=== PATIENT | female | born 1950 | race Caucasian/White ===

== ENCOUNTER 2023-03-08 10:43 | Emergency (ER) | payer MEDICARE, BC, SELFPAY ==
[2023-03-08 10:45] VITALS: BP 135/65; PULSE 77; RESP 15; TEMP 36.9; O2SAT 97
--- NOTE | 2023-03-08 11:00 | DI.RAD_ITS ---
Exam(s) XR SHOULDER LT COMPLETE 2+V EXAM: XR SHOULDER LT COMPLETE 2+V CLINICAL HISTORY: left shoulder pain. TECHNIQUE: 2D digital imaging was performed. COMPARISON: No exams were available for comparison FINDINGS: Four views: No evidence of acute fracture or dislocation. No narrowing of the glenohumeral and AC joints. Main finding here is a chunk of calcium in the lateral subacromial space just above the greater tuber osity, this measuring approximately 8 x 4 mm. Subacromial space itself not diminished. No osseous l esions. IMPRESSION: Findings consistent with calcific rotator cuff tendinitis. DATA REPOSITORY: RADIATION DOSE DELIVERED:
[2023-03-08] MEDS: Ketorolac 15 MG/ML VIAL IM (11:20)
--- NOTE | 2023-03-08 11:43 | ED.GENADUL_ITS ---
Discharge Plan Disposition Patient Disposition: Home Condition: Good Discharge Details Clinical Impression: Calcific tendinitis of left shoulder Primary Care Provider: None,None ED Provider: Tracey Voss Home Meds and New Rx's Prescriptions: No Action atorvastatin 20 mg Tablet 20 mg PO QHS pantoprazole 40 mg Tablet,Delayed Release (Dr/Ec) 40 mg PO DAILY Discharge Instructions Instructions: Tendinitis (ED) Referrals: [facility] [Provider Group] - 1 week (tendinitis) Tracey Voss MD [Emergency Provider] - Medical Decision Making 72yo female overall healthy presenting for acute on chronic left shoulder pain. Vital signs reassuring on arrival. Nothing on history or exam to suggest septic joint. Pain is reproducible in anterior shoulder; not concerned for cardiac etiology. Pain worse in the morning, this exacerbation onset after clearing brush, symptoms improved with ibuprofen. Given IM toradol. XR ordered and independently reviewed; agree with radiology read, no fracture or dislocation, likely rotator cuff tendinitis. On reassessment she reports pain has improved. Referred to [facility] orthopedic group and advised to followup with them here, and then her PCP when she returns to [place]. Discharged home; discharge instructions including return precautions were reviewed with patient who verablized understanding. Alll questions were answered and they are in full agreement with the plan. Imaging Data Radiologic Study: Radiologist's impression: IMPRESSION: Findings consistent with calcific rotator cuff tendinitis. HPI General Mode of arrival: ambulatory . Date/Time Provider Initiated Documentation: 03/08/23 10:57 . Limitations to Documentation: no limitations . Information obtained by: patient . HPI Narrative: 72yo F with HLD, otherwise healthy, presenting for left shoulder pain. Pain has been present, waxing and waning in severity, x 1 year. Started after COVID shot in that arm. Has seen her PCP [place] with reassuring XR, plan to watch and wait, maybe further imaging in the fall when she returns home. Was clearing brush two days ago, that night pain was worse. Was worse further upon waking yesterday, improved somewhat throughout the day, then severe this morning upon waking. Does not recall any recent trauma to the area. Pain is worse with internal rotation. No pain at wrist or elbow. She is otherwise in her usual state of health with no fevers, chills, rash, nausea, vomiting, shortness of breath, chest pain, or other concerns. Related Data Home Medications Medication Instructions Recorded Confirmed atorvastatin 20 mg tablet 20 mg PO QHS 03/08/23 03/08/23 pantoprazole 40 mg tablet,delayed 40 mg PO DAILY 03/08/23 03/08/23 release Allergies Allergy/AdvReac Type Severity Reaction Status Date / Time clindamycin Allergy Mild Skin Rash Unverified 03/08/23 10:50 General Stated Complaint: Orthopedic ASHLEY: 4 Review of Systems Narrative: see HPI PFSH All Active Problems (Updated 03/08/23 @ 12:21 by Tracey Voss MD) Calcific tendinitis of left shoulder (Acute) Social History Smoking/Tobacco Use Status: Never Smoking risk assessment performed?: Yes Alcohol Intake: current Alcohol Intake frequency: a few times a week Alcohol type: beer Drug use: Never Substance use type: does not use Housing: house Exam Narrative Exam Narrative: General: Alert, well appearing, well nourished, in no acute distress. Head: Normocephalic, atraumatic Neck: Trachea midline, Neck supple. Cardiac: No cyanosis Resp: No respiratory distress. Speaks in full sentences. Extremities: No deformities. LUE: No bony tenderness to digits, wrist, elbow, clavicle, or scapula. Anterior shoulder moderately TTP. No shoulder warmth/erthyema/effusion. Moderate pain with passive ROM with internal rotation, signficant pain with active ROM with adduction and internal/external rotation. Neurologic: GCS 15. Moves all extremities freely against gravity Course Vital Signs Vital signs: Vital Signs Temperature 36.9 C 03/08/23 10:45 Pulse 77 03/08/23 10:45 Respiratory Rate 15 03/08/23 10:45 Blood Pressure 135/65 03/08/23 10:45 Pulse Oximetry 97 03/08/23 10:45 Temperature 36.9 C 03/08/23 10:45 Temperature Source Temporal Artery Scan 03/08/23 10:45 Pulse 77 03/08/23 10:45 Respiratory Rate 15 03/08/23 10:45 Respiratory Effort Normal 03/08/23 10:48 Blood Pressure 135/65 03/08/23 10:45 Blood Pressure Position Sitting 03/08/23 10:45 Pulse Oximetry 97 03/08/23 10:45 Oxygen Delivery Method Room Air 03/08/23 10:45 Oxygen Flow Rate 0 03/08/23 10:45 Pain Level 5 03/08/23 11:20 PAWSS Have you Been Recently Intoxicated or Drunk Within the Last 30 days?: No Have you Ever Experienced Previous Episodes of Alcohol Withdrawal?: No Have you ever Experienced Withdrawal Seizures?: No Have you ever Experienced Delirium Tremens(DT)s?: No Have you ever undergone Alcohol Rehabilitation Treatment (i.e, inpt ot outpatient treatment programs)?: No Have you ever Experienced Blackouts?: No Have you ever Combined Alcohol with other Downers within the last 90 days?: No Have you ever Combined Alcohol with any other Substance of Abuse during the last 90 days?: No Result: 0
[2023-03-08 12:47] VITALS: BP 101/70; PULSE 66; O2SAT 95
== END 2023-03-08 12:50 | disposition home or self-care (01) ==
PROVIDERS: Emergency Provider Student in an Organized Health Care Education/Training Program
DX: M75.32 Calcific tendinitis of left shoulder (principal)
CPT/HCPCS: 96372; 99284; 73030; 99282; J1885

== ENCOUNTER → 2023-03-21 10:17 | Outpatient (BNVA) | payer MEDICARE, BC, SELFPAY | PROVIDERS: Visit Provider Student in an Organized Health Care Education/Training Program | DX: S49.82XA Other specified injuries of left shoulder and upper arm, initial encounter (principal); T50.Z95A Adverse effect of other vaccines and biological substances, initial encounter; M75.32 Calcific tendinitis of left shoulder | CPT/HCPCS: 99203; 99213 ==

== ENCOUNTER 2023-04-21 11:01 | Emergency (ER) | payer MEDICARE, BC, SELFPAY ==
[2023-04-21 11:06] VITALS: BP 137/66; PULSE 72; RESP 17; TEMP 36.4; O2SAT 96
--- NOTE | 2023-04-21 11:31 | W.ED.GENAD ---
Discharge Plan Disposition Patient Disposition: Home Discharge Details Clinical Impression: Acute chest wall pain Primary Care Provider: JenaeLocal ED Provider: Jimmy Aguillon Home Meds and New Rx's Prescriptions: No Action atorvastatin 20 mg Tablet 20 mg PO QHS pantoprazole 40 mg Tablet,Delayed Release (Dr/Ec) 40 mg PO DAILY Discharge Instructions Instructions: Chest Wall Pain (ED) Additional Instructions: You may continue to use appropriate [id number] medication as needed for further discomfort. If the lidocaine patch helps reduce some of your symptoms you may purchase [id number] lidocaine cream or patch 4% strength and apply as directed on packaging. If you have any new or significant worsening of symptoms return the emergency department for reassessment otherwise follow-up with your primary care provider as needed Referrals: Primary Care Provider [Outside] Discharge Data Discharge Date/Time-TO BE ENTERED AT DEPARTURE: 04/21/23 15:45 Medical Decision Making Patient presenting to the emergency department for chief complaint of left chest wall pain. Patient was picked up a [employer] 5 days ago and felt a pulling and pop in her left chest wall. Patient denies any blunt trauma, abdominal pain, cardiac complaints. Does state pain with inspiration and movement otherwise denies all other symptoms. Physical exam shows tenderness to the anterior axillary portion of the left lower ribs. No tenderness with anterior posterior compression, clear lung sounds, no abdominal tenderness exam otherwise unremarkable. Suspect chest wall strain versus abdominal wall muscular injury, do not feel that we need to perform any advanced imaging or labs. We will treat patient symptomatically and have her monitor symptoms and return for new or worsening. After discussion of diagnosis and plan of care patient has no further needs, questions, or concerns and states clear understanding to return to the emergency department for any worsening symptoms. This documentation was generated using [employer] system, please disregard any oddities of phrase or misspellings. HPI General Mode of arrival: ambulatory. Date/Time Provider Initiated Documentation: 04/21/23 11:05. Limitations to Documentation: no limitations. Information obtained by: patient, family and RN notes reviewed. History of Present Illness 72 year old F presents to the emergency department with the chief complaint of Left chest wall pain, described as moderate, Quality is described as aching and sharp, and is localized to the chest. Patient started experiencing this day(s) (5) and it has been constant. No relieving factors improve symptom(s), No exacerbating factors reported . Patient notes no other symptoms.. Patient did receive the following treatments prior to arrival, NSAID Related Data Home Medications Medication Instructions Recorded Confirmed atorvastatin 20 mg tablet 20 mg PO QHS 03/08/23 04/21/23 pantoprazole 40 mg tablet,delayed 40 mg PO DAILY 03/08/23 04/21/23 release Allergies Allergy/AdvReac Type Severity Reaction Status Date / Time clindamycin Allergy Mild Skin Rash Unverified 03/21/23 10:24 General Stated Complaint: Orthopedic ASHLEY: 5 Review of Systems Constitutional Constitutional: Denies chills, Denies fever(s) and Denies malaise Cardiovascular Cardiovascular: Reports chest pain, Denies syncope, Denies lightheadedness and Denies dyspnea Respiratory Respiratory: Reports pain on inspiration and Denies dyspnea Gastrointestinal Gastrointestinal: Denies abdominal pain Musculoskeletal Musculoskeletal: Denies back pain Integumentary/Breasts Skin/Breast: Denies rash, Denies unusual bruising and Denies wounds Neurologic Neurologic: Denies syncope PFSH All Active Problems (Updated 04/21/23 @ 11:37 by Jimmy Aguillon NP) Acute chest wall pain (Acute) Shoulder injury related to vaccine administration (SIRVA) (Acute) Social History Smoking/Tobacco Use Status: Never Smoking risk assessment performed?: Yes Alcohol Intake: current Alcohol Intake frequency: a few times a week Alcohol type: beer Drug use: Never Substance use type: does not use Housing: house Current gender identity: female Do you feel safe at home: Yes Do you feel safe in your relationship?: Yes Exam Const General: cooperative, no acute distress and not ill appearing Orientation: alert, awake and oriented x3 HENMT Mouth: moist mucous membranes Chest Chest: normal inspection of the chest, no localized rib tenderness and tenderness rib left anterior-axillary line involving the 9th rib and involving the 10th rib Resp Effort & Inspection: normal respiratory effort, able to speak in complete sentences and no respiratory distress Auscultation: clear to auscultation bilaterally Cardio Rate: regular rate Rhythm: regular rhythm Heart Sounds: S1 normal and S2 normal Skin General skin exam: no rashes or lesions noted Neuro General: patient alert, patient awake, patient oriented x3, moves all extremities and no focal motor deficits Sensory Exam: no sensory deficits noted Course Vital Signs Vital signs: Vital Signs Temperature 36.4 C L 04/21/23 11:06 Pulse 72 04/21/23 11:06 Respiratory Rate 17 04/21/23 11:06 Blood Pressure 137/66 04/21/23 11:06 Pulse Oximetry 96 04/21/23 11:06 Temperature 36.4 C L 04/21/23 11:06 Temperature Source Temporal Artery Scan 04/21/23 11:06 Pulse 72 04/21/23 11:06 Respiratory Rate 17 04/21/23 11:06 Respiratory Effort Normal, Non-Labored 04/21/23 11:09 Blood Pressure 137/66 04/21/23 11:06 Blood Pressure Position Sitting 04/21/23 11:06 Pulse Oximetry 96 04/21/23 11:06 Oxygen Delivery Method Room Air 04/21/23 11:06 Oxygen Flow Rate 0 04/21/23 11:06 Pain Level 6 04/21/23 11:06
[2023-04-21] MEDS: Lidocaine 5% Patch 1 PATCH TP (11:53)
== END 2023-04-21 15:45 | disposition home or self-care (01) ==
PROVIDERS: Emergency Provider Nurse Practitioner Family
DX: R07.9 Chest pain, unspecified (principal)
CPT/HCPCS: 99283

== ENCOUNTER 2023-05-01 10:46 | Emergency (ER) | payer MEDICARE, BC, SELFPAY ==
[2023-05-01 10:45] VITALS: BP 133/69; PULSE 67; TEMP 36.6; O2SAT 98
--- NOTE | 2023-05-01 10:53 | ED.GENADUL_ITS ---
Discharge Plan Disposition Patient Disposition: Home Condition: Stable Discharge Details Clinical Impression: Closed fracture of right tibial plateau, Tibial plateau fracture, right Primary Care Provider: Jenae,Local ED Provider: Sridhar Davis Meds and New Rx's Prescriptions: New naproxen sodium 275 mg tablet 275 mg PO BID Qty: 60 0RF Continued atorvastatin 20 mg Tablet 20 mg PO QHS pantoprazole 40 mg Tablet,Delayed Release (Dr/Ec) 40 mg PO DAILY Discharge Instructions Instructions: Leg Fracture (ED) Discharge Data Discharge Physician: Sridhar Davis Medical Decision Making MDM: Summary: Patient with trauma to her right knee that happened yesterday and pain who had x-rays done and shows a right nondisplaced lateral tibial plateau fracture. She will be placed on knee immobilizer and crutches and will be nonweightbearing she will follow with orthopedic surgery this week Data Review Analysis All the data on this patient was reviewed by me including laboratory and imaging studies as well as bedside studies performed by me Independent review of Studies Imaging X-ray of the right knee shows a nondisplaced right lateral tibial plateau fracture Lab: Risk Stratification: Patient with a nondisplaced right tibial patella fracture and will be placed in knee immobilizer and crutches and will follow with orthopedic surgery at this Differential Diagnosis: 1. Tibial plateau fracture 2. Knee sprain 3. Femur fracture 4. 5. Consultants: Dr. Jesús Virk was consulted agrees with disposition and plan and will see the patient this week Shared disposition: Patient and family understand the plan and she will be discharged home on crutches and knee immobilizer Impression: Medical Records Medical records reviewed: Yes I reviewed the patient's medical records. Imaging Data Radiologic Study: Attestation: I personally reviewed and interpreted this imaging study as follows: Imaging: X-Ray My impression: X-ray right knee shows a lateral nondisplaced tibial plateau fracture Radiologist's impression: Same interpretation of the radiologist HPI General Date/Time Provider Initiated Documentation: 05/01/23 10:52 . HPI Narrative: Patient presents to the emergency department complaining of right knee pain after she fell going into her house landing on her right knee. Reporting tenderness to the lateral aspect of the right knee which she reports about an 8/10 in hurts to bear weight Related Data Home Medications Medication Instructions Recorded Confirmed atorvastatin 20 mg tablet 20 mg PO QHS 03/08/23 05/01/23 pantoprazole 40 mg tablet,delayed 40 mg PO DAILY 03/08/23 05/01/23 release naproxen sodium 275 mg tablet 275 mg PO BID #60 tabs 05/01/23 Previous Rx's Medication Instructions Recorded naproxen sodium 275 mg tablet 275 mg PO BID #60 tabs 05/01/23 Allergies Allergy/AdvReac Type Severity Reaction Status Date / Time clindamycin Allergy Mild Skin Rash Unverified 05/01/23 12:10 General Stated Complaint: Orthopedic ASHLEY: 4 Review of Systems Narrative: Review of Systems: Constitutional: No fevers, chills, sweats Eye: No recent visual problems ENT: No ear pain, nasal congestion, sore throat Respiratory: No shortness of breath, cough Cardiovascular: No Chest pain, palpitations, syncope Gastrointestinal: No nausea, vomiting, diarrhea Genitourinary: No hematuria Johnathan/Lymph: Negative for bruising tendency, swollen lymph glands Endocrine: Negative for excessive thirst, excessive hunger Musculoskeletal: No back pain, neck pain, Integumentary: No rash, pruritus, abrasions Neurologic: Alert & oriented X 4 Psychiatric: No anxiety, depression PFSH All Active Problems (Updated 05/01/23 @ 12:22 by Sridhar Davis MD) Acute chest wall pain (Acute) Closed fracture of right tibial plateau (Acute) Tibial plateau fracture, right (Acute) Shoulder injury related to vaccine administration (SIRVA) (Acute) Social History Smoking/Tobacco Use Status: Never Smoking risk assessment performed?: Yes Alcohol Intake: current Alcohol Intake frequency: a few times a week Alcohol t ype: beer Drug use: Never Substance use type: does not use Housing: house Current gender identity: female Do you feel safe at home: Yes Do you feel safe in your relationship?: Yes Exam Narrative Exam Narrative: Exam; vitals signs as reported above normal Constitutional; In no acute distress, afebrile General: cooperative, healthy appearing, comfortable and no acute distress HEENT: Head: normal to inspection, no palpable skull fracture and normocephalic atraumatic Eyes: : appearance normal, both eyes and all related structures EOM intact bilaterally Pupils: PERRL : conjunctiva normal Direct ophthalmoscopy: normal light reflex, normal conjunctiva, normal visual acuity Ears: Normal TM, normal external canal Neck no JVD, supple non tender Neck: normal visual inspection, full ROM and no lymphadenopathy Chest: normal inspection of the chest Respiratory : normal respiratory effort and able to speak in complete sentences no wheezing no rales Cardio Rate: regular rate, rhythm: regular rhythm normal heart sounds S1 and S2 no murmurs, gallops, or rubs GI : normal to inspection, normal bowel sounds, soft, non tender, non distended, no organomegaly Back/Spine/ no CVA tenderness Thoracic/Lumbar Spine: no tenderness or deformities Skin no rashes or lesions Neuro: patient alert and no meningeal signs, Cranial Nerves: CN's II-XI intact bilaterally, Cognition: normal cognition, Speech: speech normal, Gait: normal gait, Depp tendon reflexes normal 2+ muscle strength 5/5 bilaterally Extremities, swelling and tenderness to palpation to the lateral aspect of the right knee with decreased range of motion due to pain : normal Rectal: defered Course Vital Signs Vital signs: Vital Signs Temperature 36.6 C 05/01/23 10:45 Pulse 67 05/01/23 10:45 Blood Pressure 133/69 05/01/23 10:45 Pulse Oximetry 98 05/01/23 10:45 Temperature 36.6 C 05/01/23 10:45 Temperature Source Oral 05/01/23 10:45 Pulse 67 05/01/23 10:45 Blood Pressure 133/69 05/01/23 10:45 Blood Pressure Position Supine 05/01/23 10:45 Pulse Oximetry 98 05/01/23 10:45 Oxygen Delivery Method Room Air 05/01/23 10:45 Oxygen Flow Rate 0 05/01/23 10:45 Pain Level 4 05/01/23 10:45
--- NOTE | 2023-05-01 11:15 | DI.RAD_ITS ---
Exam(s) XR KNEE RT 4V+ EXAM: XR KNEE RT 4V+ CLINICAL HISTORY: fall and knee pain. TECHNIQUE: 2D digital imaging was performed of the right knee. Five views obtained. Merchant, AP, la teral and PA tunnel views were obtained. COMPARISON: No exams were available for comparison FINDINGS: BONES: There is an acute fracture through the lateral tibial plateau. It is nondisplaced. No bony d estructive lesion is seen. JOINTS: The knee is normally aligned. There is a lipohemarthrosis. SOFT TISSUE: Normal. IMPRESSION: Nondisplaced lateral tibial plateau fracture. DATA REPOSITORY: RADIATION DOSE DELIVERED:
--- NOTE | 2023-05-01 11:25 | DI.VRAD_ITS ---
PROCEDURE INFORMATION: Exam: XR Right Knee Exam date and time: 05/01/2023 11:10 AM Age: 72 years old Clinical indication: Pain; Knee; Right; Patient HX: Fall TECHNIQUE: Imaging protocol: Radiologic exam of the right knee. Views: 4 or more views. COMPARISON: No relevant prior studies available. FINDINGS: Bones/joints: Nondisplaced lateral tibial plateau fracture. No dislocation. Large joint effusion. Thickening of the distal quadriceps tendon. Soft tissues: Peripatellar swelling. IMPRESSION: Acute nondisplaced lateral tibial plateau fracture with large joint effusion. Dictated and Authenticated by: Allen Juarez MD. Ordering:ABIEL Waller MD
--- NOTE | 2023-05-01 17:15 | NUR.NOTE ---
Nurse documented Triage at 1701 Actual Discharge was at 1247 Nursing Note:
== END 2023-05-01 17:02 | disposition home or self-care (01) ==
LOC: RED 11:26 → ER 11:30
PROVIDERS: Emergency Provider Emergency Medicine Emergency Medical Services
DX: S82.144A Nondisplaced bicondylar fracture of right tibia, initial encounter for closed fracture (principal); M25.061 Hemarthrosis, right knee; W18.39XA Other fall on same level, initial encounter; Y93.01 Activity, walking, marching and hiking; Y92.018 Other place in single-family (private) house as the place of occurrence of the external cause; Y99.9 Unspecified external cause status
CPT/HCPCS: 99283; 73564

== ENCOUNTER → 2023-05-05 08:04 | Outpatient (BNVA) | payer MEDICARE, BC, SELFPAY | PROVIDERS: Visit Provider Student in an Organized Health Care Education/Training Program | DX: S82.144A Nondisplaced bicondylar fracture of right tibia, initial encounter for closed fracture (principal); W18.39XA Other fall on same level, initial encounter | CPT/HCPCS: 99213 ==

== ENCOUNTER 2023-05-11 14:07 | Outpatient (CLI) | payer MEDICARE, BC, SELFPAY ==
--- NOTE | 2023-05-11 13:53 | DI.RAD_ITS ---
Exam(s) XR KNEE RT 2V AP,LAT EXAM: XR KNEE RT 2V AP,LAT CLINICAL HISTORY: fracture follow up. TECHNIQUE: 2D digital imaging was performed. Two views. COMPARISON: No exams were available for comparison FINDINGS: BONES: Stable appearance of lateral tibial plateau fracture JOINTS: The knee is normally aligned. A small joint effusion is seen a decreasing from prior. SOFT TISSUE: Normal. IMPRESSION: Stable appearance of lateral tibial plateau fracture DATA REPOSITORY: RADIATION DOSE DELIVERED:
== END 2023-05-11 14:08 | disposition home or self-care (01) ==
LOC: DIORS 14:08
PROVIDERS: Visit Provider Physician Assistant
DX: S82.141A Displaced bicondylar fracture of right tibia, initial encounter for closed fracture (principal); X58.XXXA Exposure to other specified factors, initial encounter; M75.32 Calcific tendinitis of left shoulder; S49.80XA Other specified injuries of shoulder and upper arm, unspecified arm, initial encounter; T50.Z95A Adverse effect of other vaccines and biological substances, initial encounter
CPT/HCPCS: 20610; 73560; J1030

== ENCOUNTER 2023-05-25 14:59 | Outpatient (CLI) | payer MEDICARE, BC, SELFPAY ==
--- NOTE | 2023-05-25 10:45 | DI.RAD_ITS ---
Exam(s) XR KNEE RT 2V AP,LAT EXAM: XR KNEE RT 2V AP,LAT CLINICAL HISTORY: F/U FX. TECHNIQUE: 2D digital imaging was performed. COMPARISON: CR XR KNEE RT 2V AP,LAT from 05/11/2023 FINDINGS: Views. Continued stable appearance of the lateral tibial plateau fracture. No additional fractures evident. Joint effusion-hemarthrosis again noted. IMPRESSION: Stable appearance DATA REPOSITORY: RADIATION DOSE DELIVERED:
== END 2023-05-25 15:00 | disposition home or self-care (01) ==
LOC: DIORS 14:59
PROVIDERS: Visit Provider Physician Assistant
DX: S82.144A Nondisplaced bicondylar fracture of right tibia, initial encounter for closed fracture (principal); X58.XXXA Exposure to other specified factors, initial encounter
CPT/HCPCS: 99213; 73560